=== PATIENT | male | born 1985 | race American Indian/Alaskan Native ===

== ENCOUNTER 2022-01-23 23:55 | Emergency (ER) | payer MEDICAID ==
[~2022-01-23] VITALS: Ht 165.1 cm; Wt 63.5 kg
[2022-01-24 01:25] LABS: Basophils # (auto) 0.1 10 ^3/uL (0-0.2); Basophils % (auto) 1.2 % (0.0-2.0); Eosinophils # (auto) 0.6 10 ^3/uL (0-0.8); Eosinophils % (auto) 8.1 % (0.0-7.0); Hematocrit 44.3 % (41.0-53.0); Hemoglobin 15.4 g/dL (13.5-17.5); Lymphocytes # (auto) 3.3 10 ^3/uL (0.4-5.4); Lymphocytes % (auto) 41.8 % (10.0-50.0); Mean Corpuscular Hgb Conc. 34.8 g/dL (32.0-36.0); Monocytes # (auto) 0.4 10 ^3/uL (0-1.3); Monocytes % (auto) 5.4 % (0.0-12.0); Neutrophils # (auto) 3.5 10 ^3/uL (1.6-8.6); Neutrophils % (auto) 43.5 % (37.0-80.0); Nucleated Red Blood Cells % 0.2 %; Red Blood Cells 4.98 10^6/uL (4.5-5.90); Red Cell Distribution Width 13.4 % (11.8-14.3)
[2022-01-24 01:45] LABS: BUN/Creatinine Ratio 14.6; Calcium 8.8 mg/dL (8.5-10.1); Magnesium 2.4 mg/dL (1.6-2.6); Potassium 3.5 mmol/L (3.5-5.1)
[2022-01-24 01:48] LABS: Bilirubin, Total 0.2 mg/dL (0.2-1.0); Total Protein 7.2 g/dL (6.4-8.2)
[2022-01-24] MEDS ORDERED: PRED20TA2 PO (04:24)
[2022-01-24 04:35] VITALS: BP 102/78
== END 2022-01-24 04:51 | disposition home or self-care (01) ==
LOC: ER 23:55
DX: B34.9 Viral infection, unspecified (principal)
CPT/HCPCS: 36415; 71045; 80053; 83735; 83880; 84484; 85025; 93005

== ENCOUNTER 2022-03-29 10:09 | Emergency (ER) | payer MEDICAID ==
[~2022-03-29] VITALS: Ht 165.1 cm; Wt 63.0 kg
[~2022-03-29 10:09] MED LIST: PRED20TA2 PO
[2022-03-29 10:10] VITALS: BP 127/84
[2022-03-29] MEDS ORDERED: PROM1SOL4 PO (11:17)
[2022-03-29] MEDS ORDERED: AZIT250T8 PO (11:17)
== END 2022-03-29 11:42 | disposition home or self-care (01) ==
LOC: ER 10:09
DX: J20.9 Acute bronchitis, unspecified (principal); Z20.822 Contact with and (suspected) exposure to COVID-19
CPT/HCPCS: 36415; 71045

== ENCOUNTER 2022-04-03 18:59 | Emergency (ER) | payer MEDICAID ==
[~2022-04-03] VITALS: Ht 165.1 cm; Wt 57.0 kg
[~2022-04-03 18:59] MED LIST changes: +AZIT250T8 PO; +PROM1SOL4 PO
[2022-04-03 19:36] VITALS: BP 110/75
[2022-04-03] MEDS ORDERED: methylPREDNISolone SOD SUCC 125 MG/2 ML VL IM ONE (20:00)
[2022-04-03] MEDS ORDERED: ALBUTEROL SULF 2.5 MG/0.5ML(0.5%) NEB SOLN NEB ONE (20:00)
[2022-04-03] MEDS ORDERED: ALBUAER3 IN (20:44)
[2022-04-03] MEDS ORDERED: PRED20TA2 PO (20:44)
== END 2022-04-03 21:16 | disposition home or self-care (01) ==
LOC: ER 18:59
DX: J20.9 Acute bronchitis, unspecified (principal); Z20.822 Contact with and (suspected) exposure to COVID-19
CPT/HCPCS: 36415; 87426; 94640; 96372; 99283; J2930

== ENCOUNTER 2022-06-01 17:58 | Emergency (ER) | payer MEDICAID ==
[~2022-06-01] VITALS: Ht 165.1 cm; Wt 59.0 kg
[~2022-06-01 17:58] MED LIST changes: +ALBUAER3 IN
[2022-06-01] MEDS ORDERED: ALBUTEROL SULF 2.5 MG/0.5ML(0.5%) NEB SOLN NEB ONE (23:00)
[2022-06-01] MEDS ORDERED: IPRATROPIUM BROM 0.5 MG/2.5ML INH SOL NEB ONE (23:00)
[2022-06-01] MEDS ORDERED: PRED20TA2 PO (23:19)
[2022-06-01] MEDS ORDERED: ALBUAER3 IN (23:19)
[2022-06-01 23:45] VITALS: BP 103/72
== END 2022-06-01 23:47 | disposition home or self-care (01) ==
LOC: ER 18:02
DX: J20.9 Acute bronchitis, unspecified (principal); F17.210 Nicotine dependence, cigarettes, uncomplicated; R07.89 Other chest pain; Z20.822 Contact with and (suspected) exposure to COVID-19
CPT/HCPCS: 36415; 71045; 87426; 87804; 94640; 99284; J7644

== ENCOUNTER 2022-07-27 08:59 | Emergency (ER) | payer MEDICAID ==
[~2022-07-27] VITALS: Ht 165.1 cm; Wt 59.4 kg
[2022-07-27 09:50] VITALS: BP 122/87
[2022-07-27] MEDS ORDERED: HYDR-4902 PO (10:20)
[2022-07-27] MEDS ORDERED: ONDA-144 PO (10:20)
== END 2022-07-27 10:30 | disposition home or self-care (01) ==
LOC: ER 09:00
DX: S92.512A Displaced fracture of proximal phalanx of left lesser toe(s), initial encounter for closed fracture (principal); F12.90 Cannabis use, unspecified, uncomplicated; Z79.899 Other long term (current) drug therapy; W22.8XXA Striking against or struck by other objects, initial encounter; Y92.89 Other specified places as the place of occurrence of the external cause; Y93.89 Activity, other specified; Y99.8 Other external cause status
CPT/HCPCS: 73630

== ENCOUNTER 2023-07-20 07:44 | Emergency (ER) | payer MEDICAID ==
[~2023-07-20] VITALS: Ht 165.1 cm; Wt 58.9 kg
[~2023-07-20 07:44] MED LIST changes: +AZIT-81 PO; -AZIT250T8 PO; +HYDR-4902 PO; +ONDA-144 PO
[2023-07-20 08:57] LABS: COVID19 ANTIGEN SOFIA FIA NEGATIVE (NEGATIVE); Rapid Influenza A Negative (Negative); Rapid Influenza B Negative (Negative)
[2023-07-20] MEDS ORDERED: PROM1SOL4 PO (09:36)
[2023-07-20] MEDS ORDERED: DexAMETHasone SOD PHOS 10MG/1ML VIAL INJ PO ONE (09:45)
[2023-07-20 09:46] VITALS: BP 138/85; PULSE 68; RESP 18; TEMP 97.2; O2SAT 98
== END 2023-07-20 09:47 | disposition home or self-care (01) ==
LOC: ER 07:44
DX: J06.9 Acute upper respiratory infection, unspecified (principal); J40 Bronchitis, not specified as acute or chronic; F12.10 Cannabis abuse, uncomplicated; Z20.822 Contact with and (suspected) exposure to COVID-19
CPT/HCPCS: 36415; 87426; 87804; 99283; J1100

== ENCOUNTER 2024-10-15 17:12 | Emergency (ER) | payer MEDICAID ==
[~2024-10-15] VITALS: Ht 165.1 cm; Wt 62.0 kg
[~2024-10-15 17:12] MED LIST changes: +ALBU108A5 IN; +AZIT-185 PO; -AZIT-81 PO; +BACDST PO; +BENZ100C97 PO; +IBUP-1455 PO; +IBUP-1456 PO; +METH-1182 PO; +METH4PAK PO
--- NOTE | 2024-10-15 17:46 | ED.PDOC ---
History of Present Illness HPI Comments 39M presents to the ER w/ no prior Hx associated to the c/c of a cough for "months". Pt reports that every physician that he saw stated that he had Bronchitis. Pt notes on having Nasal Discharge in the middle of the night. Pt states that he also has a seed and fertilizer specialist appointment next month to see. PMhx of Anxiety. Denies chills, fever, N/V/D, SOB, CP or other associated symptom's, modifiers, or recent injuries or sick contact at this time. Chief Complaint: Cough Time Seen by MD: 17:20 Primary Care Provider: PREM Reviewed Notes: Nurses Notes, Medications, Allergies Allergies: Coded Allergies: NO KNOWN ALLERGIES (Unverified , 01/24/22) Home Meds Active Scripts Albuterol Sulfate (Albuterol Sulfate Hfa) 108 Mcg/Act Aer, 108 MCG IN Q6HPRN PRN for 30 Days, #1 AER 0 Refills Prov:RADHA RASHID HEALTH NURSE 06/06/24 Promethazine-Dm (Promethazine Dm 6.25-15 mg/5Ml) 1 Alona Alona, 5 ML PO TID for 10 Days, #150 ML 0 Refills Prov:KRYSTAL RASHIDO Carrie HEALTH NURSE 06/06/24 Benzonatate (Benzonatate) 100 Mg Cap, 1 CAP PO TID for 10 Days, #30 CAP 0 Ref ills Prov:RADHA RASHID HEALTH NURSE 06/06/24 Methylprednisolone (Medrol Dosepak) 4 Mg Casa, 4 MG PO UD, #21 TAB 0 Refills UAD Prov:RACHIDRADHA Butler HEALTH NURSE 06/06/24 Ibuprofen Micronized (Ibuprofen) 800 Mg Tab, 800 MG PO TIDWMEALS for 14 Days, #42 TAB 0 Refills Prov:RACHIDRADHA Carrie HEALTH NURSE 04/13/24 Methylprednisolone (Medrol Dosepak) 4 Mg Casa, 4 MG PO UD for 7 Days, #21 TAB 0 Refills UAD Prov:RACHIDRADHA Carrie LACI 04/13/24 Sulfamethoxazole W/Trimethopri (Bactrim Ds Tablet) 1 Tab Tb, 1 TAB PO BID for 7 Days, #14 TAB 0 Refills Prov:RADHA RASHID Carrie HEALTH NURSE 04/13/24 Prednisone (Prednisone) 20 Mg Tab, 40 MG PO DAILY, #20 MG Prov:REGLA MERINO 12/12/23 Methocarbamol (Methocarbamol) 750 Mg Tab, 750 MG PO BID, #20 TAB Prov:REGLA MERINO 11/20/23 Ibuprofen (Ibuprofen) 800 Mg Tab, 1 TAB PO TID, #30 TAB Prov:REGLA MERINO 11/20/23 Promethazine-Dm (Promethazine Dm 6.25-15 mg/5Ml) 1 Alona Alona, 5 ML PO TIDP PRN for 10 Days, #150 ML 0 Refills Prov:RADHA RASHID NP 07/20/23 Ondansetron (Zofran) 4 Mg Tab, 1 TAB PO Q8HR, #10 TAB 0 Refills Prov:PRICE VIVAR 07/27/22 Hydrocodone-Acetaminophen (Hydrocodone Bitartrate/AC 5-325 mg) 1 Tab Tab, 1 TAB PO Q4HPRN PRN, #10 TAB 0 Refills Prov:PRICE VIVAR 07/27/22 Albuterol Sulfate (VENTOLIN MDI) 90 Mcg Ih, 90 MCG IN PRN PRN, #1 INH 0 Refills Prov:PRICE VIVAR 06/01/22 Prednisone (Prednisone) 20 Mg Tab, 20 MG PO BID for 5 Days, #10 TAB 0 Refills Prov:PRICE VIVAR 06/01/22 Albuterol Sulfate (VENTOLIN MDI) 90 Mcg Ih, 90 MCG IN QID PRN, #1 INH Prov:ADAM CRABTREE 04/03/22 Prednisone (Prednisone) 20 Mg Tab, 40 MG PO DAILY for 5 Days, #10 MG Prov:ADAM CRABTREE 04/03/22 Promethazine-Dm (Promethazine Dm 6.25-15 mg/5Ml) 1 Alona Alona, 5 ML PO TID, #150 ML Prov:REGLA MERINO 03/29/22 Azithromycin (ZITHROMAX TABLET) 250 Mg Tb, 250 MG PO DAILY, #6 TAB Prov:REGLA MERINO 03/29/22 Prednisone (Prednisone) 20 Mg Tab, 60 MG PO DAILY for 5 Days, #15 MG Prov:DAMASO MIRELES DO 01/24/22 Information Source: Patient Mode of Arrival: Ambulatory Severity: Moderate Timing: Months Duration: Since onset Prehospital treatment: None Past Medical History PAST MEDICAL HISTORY: Anxiety Surgical History: Denies all surgeries Family History Family History: Reviewed,noncontributory to illness, Unknown Social History Smoker: Non-Smoker Alcohol: Denies ETOH Use Drugs: Denies Drug Use, Unknown Lives In: Home Constitutional: denies: chills, diaphoresis, fatigue, fever, malaise, sweats, weakness, others EENTM: denies: blurred vision, double vision, ear bleeding, ear discharge, ear drainage, ear pain, ear ringing, eye pain, eye redness, hearing loss, mouth pain, mouth swelling, nasal discharge, nose bleeding, nose congestion, nose pain, photophobia, tearing, throat pain, throat swelling, voice changes, others Respiratory: reports: cough; denies: hemoptysis, orthopnea, SOB at rest, shortness of breath, SOB with excertion, stridor, wheezing, others Cardiovascular: denies: chest pain, dizzy spells, diaphoresis, Dyspnea on exertion, edema, irregular heart beat, left arm pain, lightheadedness, palpitations, PND, syncope, others Gastrointestinal: denies: abdomen distended, abdominal pain, blood streaked bowels, constipated, diarrhea, dysphagia, difficulty swallowing, hematemesis, melena, nausea, poor appetite, poor fluid intake, rectal bleeding, rectal pain, vomiting, others Genitourinary: denies: burning, dysuria, flank pain, frequency, hematuria, incontinence, penile discharge, penile sore, pain, testicle pain, testicle swelling, urgency, others Neurological: denies: dizziness, fainting, headache, left sided numbness, left sided weakness, numbness, paresthesia, pre-existing deficit, right sided numbness, right sided weakness, seizure, speech problems, tingling, tremors, weakness, others Musculoskeletal: denies: back pain, gout, joint pain, joint swelling, muscle pain, muscle stiffness, neck pain, others Integumetry: denies: bruises, change in color, change in hair/nails, dryness, laceration, lesions, lumps, rash, wounds, others Allergic/Immunocompromised: denies: Difficulty Healing, Frequent Infections, Hives, Itching, others Hematologic/Lymphatic: denies: anemia, blood clots, easy bleeding, easy bruising, swollen glands, others Endocrine: denies: excessive hunger, excessive sweating, excessive thirst, excessive urination, flushing, intolerance to cold, intolerance to heat, unexplained weight gain, unexplained weight loss, others Psychiatric: denies: anxiety, bipolar disorder, depression, hopeless, panic disorder, schizophrenia, sleepless, suicidal, others All Other Systems: Reviewed and Negative Physical Exam General Appearance: No Apparent Distress, Normal HEENT: Normal ENT Inspection, Pharynx Normal, TMs Normal Neck: Full Range of Motion, Non-Tender, Normal, Normal Inspection Respiratory: Chest Non-Tender, Lungs Clear, No Accessory Muscle Use, No Respiratory Distress, Normal Breath Sounds Cardiovascular: No Edema, No JVD, No Murmur, No Gallop, Normal Peripheral Pulses, Regular Rate/Rhythm Breast Exam: Deferred Gastrointestinal: No Organomegaly, Non Tender, No Pulsatile Mass, Normal Bowel Sounds, Soft Genitalia: Deferred Pelvic: Deferred Rectal: Deferred Extremities: No calf tenderness, Normal capillary refill, Normal inspection, Normal range of motion, Non-tender, No pedal edema Musculoskeletal : Apperance: Normal Neurologic: Alert, clinical laboratory science professor II-XII nml as Tested, No Motor Deficits, Normal Affect, Normal Mood, No Sensory Deficits Cerebellar Function: Normal Reflexes: Normal Skin: Dry, Normal Color, Warm Lymphatic: No Adenopathy Was a procedure done? Was a procedure done?: No Differential Dx Considerations may include: asthma, bronchitis, pneumonia, fb aspiration, lung mass, anxiety, viral uri X-Ray, Labs, Meds, VS Vital Signs Date Time Temp Pulse Resp B/P (MAP) Pulse Ox O2 Delivery O2 Flow Rate FiO2 10/15/24 17:20 98.1 90 16 134/77 (96) 97 10/15/24 17:20 16 97 Room Air* 0 21 Time of 1ST Reevaluation: 17:50 Reevaluation 1ST: Unchanged Time of 2ND Reevaluation: 18:33 Reevaluation 2ND: Improved Patient Education/Counseling: Diagnosis, Treatment, Prognosis Family Education/Counseling: No Family Present Additional Information - I reviewed the following notes from patient's past medical encounters:06/06/24 - The following tests were ordered, and results were reviewed by me: X-Ray - I reviewed and agreed with the following test results read by other provider:(X-ray - I discussed treatments and results with medical personnel pt has chronic bronchitis. reviewing his prior visits, he's had multiple visits over the years for the same sxs. his pcp also suspected chronic bronchitis and has referred him to see pulmonary. i will star him on combivent and prednisone in the meantime. cxr does not show chf, infiltrates, or lesions, nor PTX Departure 1 Departure Time of Disposition: 18:34 Impression: Primary Impression: Chronic bronchitis Qualified Codes: J42 - Unspecified chronic bronchitis Disposition: HOME / SELF CARE / HOMELESS Condition: Good e-Prescriptions Mometasone Furoate (Nasal) (Nasonex 24Hr) 50 Mcg/Act Spr 50 MCG NA BID, #1 EA Prov: AURELIANO FAROOQ MD 10/15/24 Benzonatate (Benzonatate) 200 Mg Cap 1 CAP PO TID, #30 CAP Prov: AURELIANO FAROOQ MD 10/15/24 Prednisone (Prednisone) 20 Mg Tab 20 MG PO DAILY, #5 TAB Prov: AURELIANO FAROOQ MD 10/15/24 Ipratropium-Albuterol (COMBIVENT RESPIMAT) Respimat Aer 2 PUFF IN Q4HP PRN, #1 AER Prov: AURELIANO FAROOQ MD 10/15/24 Discharged With: Self Critical Care Note Critical Care Time?: No Stability Stability form required: No I personally scribed for AURELIANO FAROOQ MD ([email or web address]) on 10/15/24 at 17:46. Electronically submitted by Margarito Camacho ([email or web address]). AURELIANO FAROOQ MD Oct 15, 2024 17:46
--- NOTE | 2024-10-15 18:34 | DVH ---
CHEST RADIOGRAPH Indication: cough Technique: Single frontal view of the chest was obtained Comparison: CHEST PORTABLE on DOS: 06/01/22, CHEST XRAY 1 VIEW on DOS: 03/29/22, CXRP on DOS: 01/24/22 FINDINGS: Lines and Tubes: None Lungs: No focal consolidation. Pleura: No effusion. No pneumothorax. Cardiomediastinal contours: Unremarkable Bones: No acute osseous abnormality. IMPRESSION: No acute cardiopulmonary disease.
[2024-10-15] MEDS ORDERED: IPRAAER6 IN (18:37)
[2024-10-15] MEDS ORDERED: MOME50SP11 (18:37)
[2024-10-15] MEDS ORDERED: BENZ200C64 PO (18:37)
[2024-10-15] MEDS ORDERED: PRED20TA2 PO (18:37)
[2024-10-15 19:21] VITALS: BP 130/84; PULSE 88; RESP 18; TEMP 98.2; O2SAT 97
== END 2024-10-15 19:26 | disposition home or self-care (01) ==
LOC: ER 17:12
DX: J42 Unspecified chronic bronchitis (principal); F41.9 Anxiety disorder, unspecified; Z79.899 Other long term (current) drug therapy
CPT/HCPCS: 71045